=== PATIENT | male | born 1995 | race Two or more races ===

== ENCOUNTER 2024-03-28 21:42 | Emergency (ER) | payer BC ==
[2024-03-28 22:02] LABS: APPEARANCE,URINE CLEAR; BILIRUBIN,URINE NEGATIVE (NEGATIVE); COLOR,URINE YELLOW; GLUCOSE,URINE NEGATIVE (NEGATIVE); KETONES,URINE NEGATIVE (NEGATIVE); LEUKOCYTE ESTERASE,URINE NEGATIVE (NEGATIVE); NITRITE,URINE NEGATIVE (NEGATIVE); OCCULT BLOOD,URINE TRACE-INTACT (NEGATIVE); PROTEIN,URINE 30 mg/dL (NEGATIVE); UROBILINOGEN,URINE 0.2 EU/dL (<2.0)
[2024-03-28 22:11] LABS: WBC,URINE 0-2 (0-5/HPF)
[2024-03-28 22:12] LABS: BACTERIA,URINE RARE (NEGATIVE); EPITHELIAL CELLS,URINE OCCASIONAL (NONE-FEW); RBC,URINE 0-2 (0-2/HPF)
[2024-03-28] MEDS: Ondansetron 4 MG/2 ML SDV IVPUSH ONE (22:19)
[2024-03-28] MEDS: HYDROmorphone 0.5 MG/0.5 ML Syringe IVPUSH ONE (22:19)
[2024-03-28] MEDS: Sodium Chloride 0.9% 10 ML Syringe FLUSH PRN (22:19)
[2024-03-28] MEDS: Acetaminophen 500 MG Tab PO ONE (22:19)
[2024-03-28 22:27] LABS: BASOPHILS ABSOLUTE AUTO 0.03 K/uL (0.00-0.20); BASOPHILS PERCENT AUTO 0.3 % (0.0-1.0); EOSINOPHILS PERCENT AUTO 1.8 % (0.0-6.0); HEMATOCRIT 43.6 % (42.0-52.0); HEMOGLOBIN 15.2 g/dL (14.0-18.0); IMMATURE GRAN ABSOLUTE AUTO 0.04 K/uL (0.00-0.05); IMMATURE GRAN PERCENT AUTO 0.4 % (0.0-0.4); LYMPHOCYTES ABSOLUTE AUTO 1.96 K/uL (1.00-4.80); MEAN CORPUSCULAR HEMOGLOBIN 28.1 pg (28.0-32.0); MEAN CORPUSCULAR HGB CONC 34.9 g/dL (32.0-36.0); MEAN CORPUSCULAR VOLUME 80.6 fL (83.0-99.0); MEAN PLATELET VOLUME 9.2 fL (9.4-12.4); MONOCYTES ABSOLUTE AUTO 0.57 K/uL (0.00-0.80); MONOCYTES PERCENT AUTO 5.2 % (0.0-8.0); NEUTROPHILS ABSOLUTE AUTO 8.11 K/uL (1.80-7.70); NEUTROPHILS PERCENT AUTO 74.3 % (41.0-71.0); PLATELET COUNT,PLT 227 K/uL (150-400); RED BLOOD CELL COUNT 5.41 M/uL (4.52-5.90); WHITE BLOOD CELL COUNT,WBC 10.91 K/uL (3.9-11.3)
[2024-03-28 22:47] LABS: A/G RATIO 1.1 (0.9-1.6); BILIRUBIN TOTAL 0.6 mg/dL (0.2-1.0); CALCIUM 8.7 mg/dL (8.5-10.1); CARBON DIOXIDE,CO2 31.5 mmol/L (21.0-32.0); CREATININE 1.1 mg/dL (0.8-1.3); POTASSIUM,K 3.5 mmol/L (3.5-5.1); PROTEIN TOTAL,TP 7.8 g/dL (6.4-8.2)
[2024-03-28] MEDS: Ketorolac 30 MG/ML SDV IVPUSH ONE (23:05)
[2024-03-28] MEDS: droPERidol 5 MG/2 ML SDV IVPUSH ONE (23:38)
[2024-03-28] MEDS: Iopamidol 755 Mg/ML 100 ML Bottle IVPUSH ONE (23:50)
[2024-03-29] MEDS: Polyethylene Glycol 3350 Powder 17 GM Packet PO ONE (00:34)
[2024-03-29] MEDS: Dicyclomine 10 MG Cap PO ONE (00:34)
== END 2024-03-29 01:18 | disposition home or self-care (01) ==
LOC: MW.ED 21:42
DX: K80.20 Calculus of gallbladder without cholecystitis without obstruction (principal); K59.00 Constipation, unspecified; I10 Essential (primary) hypertension; Z79.899 Other long term (current) drug therapy
CPT/HCPCS: 36415; 74176; 74177; 80053; 81001; 83605; 85025; 96374; 96375; 99284; A9270; J1171; J1790; J1885; J2405; J3490; Q9967

== ENCOUNTER 2024-04-01 18:35 | Inpatient (IN) | payer BC ==
[2024-04-01] MEDS: Morphine 4 MG/ML Syringe IVPUSH ONE ×2 (19:49→21:37)
[2024-04-01] MEDS: Ondansetron 4 MG/2 ML SDV IVPUSH ONE (19:49)
[2024-04-01 19:58] LABS: BASOPHILS ABSOLUTE AUTO 0.03 K/uL (0.00-0.20); BASOPHILS PERCENT AUTO 0.2 % (0.0-1.0); EOSINOPHILS ABSOLUTE AUTO 0.07 K/uL (0.00-0.45); EOSINOPHILS PERCENT AUTO 0.5 % (0.0-6.0); HEMATOCRIT 44.5 % (42.0-52.0); HEMOGLOBIN 15.4 g/dL (14.0-18.0); IMMATURE GRAN ABSOLUTE AUTO 0.03 K/uL (0.00-0.05); IMMATURE GRAN PERCENT AUTO 0.2 % (0.0-0.4); LYMPHOCYTES ABSOLUTE AUTO 1.62 K/uL (1.00-4.80); LYMPHOCYTES PERCENT AUTO 12.3 % (24.0-44.0); MEAN CORPUSCULAR HEMOGLOBIN 27.7 pg (28.0-32.0); MEAN CORPUSCULAR HGB CONC 34.6 g/dL (32.0-36.0); MEAN CORPUSCULAR VOLUME 80.2 fL (83.0-99.0); MEAN PLATELET VOLUME 9.4 fL (9.4-12.4); MONOCYTES ABSOLUTE AUTO 0.52 K/uL (0.00-0.80); MONOCYTES PERCENT AUTO 3.9 % (0.0-8.0); NEUTROPHILS ABSOLUTE AUTO 10.92 K/uL (1.80-7.70); NEUTROPHILS PERCENT AUTO 82.9 % (41.0-71.0); PLATELET COUNT,PLT 258 K/uL (150-400); RED BLOOD CELL COUNT 5.55 M/uL (4.52-5.90); WHITE BLOOD CELL COUNT,WBC 13.19 K/uL (3.9-11.3)
[2024-04-01 19:59] LABS: APPEARANCE,URINE CLEAR; BILIRUBIN,URINE NEGATIVE (NEGATIVE); COLOR,URINE YELLOW; GLUCOSE,URINE NEGATIVE (NEGATIVE); KETONES,URINE TRACE mg/dL (NEGATIVE); LEUKOCYTE ESTERASE,URINE NEGATIVE (NEGATIVE); NITRITE,URINE NEGATIVE (NEGATIVE); OCCULT BLOOD,URINE NEGATIVE (NEGATIVE); PROTEIN,URINE 30 mg/dL (NEGATIVE); UROBILINOGEN,URINE 0.2 EU/dL (<2.0)
[2024-04-01 20:05] LABS: BACTERIA,URINE FEW (NEGATIVE); EPITHELIAL CELLS,URINE RARE (NONE-FEW); RBC,URINE 0-1 (0-2/HPF); WBC,URINE 0-1 (0-5/HPF)
[2024-04-01 20:20] LABS: A/G RATIO 1.1 (0.9-1.6); ALBUMIN 4.3 g/dL (3.4-5.0); BILIRUBIN TOTAL 0.8 mg/dL (0.2-1.0); CALCIUM 9.8 mg/dL (8.5-10.1); CARBON DIOXIDE,CO2 28.8 mmol/L (21.0-32.0); CREATININE 0.9 mg/dL (0.8-1.3); EST CRCL DRUG DOSING (CG) 116.11 mL/min; POTASSIUM,K 4.1 mmol/L (3.5-5.1); PROTEIN TOTAL,TP 8.1 g/dL (6.4-8.2)
[2024-04-01] MEDS ORDERED: Naloxone 0.4 MG/ML SDV IVPUSH PRN (22:17)
[2024-04-01] MEDS ORDERED: diphenhydrAMINE 50 MG/ML SDV IVPUSH PRN (22:19)
[2024-04-01] MEDS: hydrALAZINE 25 MG Tab PO SCH (22:51)
[2024-04-01] MEDS: Scopalamine 1mg/3day Transdermal Patch TRDERM SCH (22:52)
[2024-04-02] MEDS: Lactated Ringers 1,000 ML IV SCH (00:15)
[2024-04-02] MEDS ORDERED: Ondansetron 4 MG/2 ML SDV IVPUSH PRN ×2 (01:30→11:26)
[2024-04-02] MEDS: HYDROmorphone 0.5 MG/0.5 ML Syringe IVPUSH PRN ×2 (03:47→22:00)
[2024-04-02] MEDS ORDERED: dexmedeTOMIDine HCl 200 MCG/2 ML SDV IV ONE (07:45)
[2024-04-02] MEDS ORDERED: Bupivacaine 0.5% 30 ML SDV ONE ×2 (09:52→13:00)
[2024-04-02] MEDS ORDERED: Propofol 200 MG/20 ML SDV ONE (10:39)
[2024-04-02] MEDS ORDERED: fentaNYL 100 MCG/2 ML SDV ONE ×2 (10:44→14:13)
[2024-04-02] MEDS ORDERED: Rocuronium Bromide 50 MG/5 ML Syringe ONE ×3 (10:45→12:57)
[2024-04-02] MEDS ORDERED: Bupivacaine 0.25% 30 ML SDV ONE (10:47)
[2024-04-02] MEDS ORDERED: Ropivacaine 0.5% 5 MG/ML 30 ML SDV ONE (10:47)
[2024-04-02] MEDS ORDERED: Morphine 2 MG/ML SYRINGE IVPUSH PRN (11:26)
[2024-04-02] MEDS ORDERED: fentaNYL 50 MCG/ML SDV IVPUSH PRN (11:26)
[2024-04-02] MEDS ORDERED: Phenylephrine HCl In 0.9% NaCl 1 MG/10 ML Syringe IVPUSH PRN (11:26)
[2024-04-02] MEDS ORDERED: Albuterol 0.083% 2.5 MG/3 ML Neb Soln NEB PRN (11:26)
[2024-04-02] MEDS ORDERED: Naloxone 0.4 MG/ML SDV IVPUSH PRN (11:26)
[2024-04-02] MEDS ORDERED: Metoclopramide 10 MG/2 ML SDV IVPUSH PRN (11:26)
[2024-04-02] MEDS ORDERED: ceFAZolin 2 GM Vial ONE (11:29)
[2024-04-02] MEDS ORDERED: ceFAZolin 1 GM Vial ONE ×2 (11:29→13:23)
[2024-04-02] MEDS ORDERED: Ketamine HCL/NACL, ISO-OSM 50 MG/5 ML Syringe ONE ×2 (11:30→12:06)
[2024-04-02] MEDS ORDERED: Ondansetron 4 MG/2 ML SDV ONE (11:32)
[2024-04-02] MEDS ORDERED: Dexamethasone 4 MG/ML 5 ML MDV ONE (11:32)
[2024-04-02] MEDS ORDERED: Esmolol 100 MG/10 ML SDV ONE ×2 (12:16→12:22)
[2024-04-02] MEDS ORDERED: Ketorolac 30 MG/ML SDV ONE (13:05)
[2024-04-02] MEDS ORDERED: Sugammadex Sodium 200 MG/2 ML VIAL IV ONE (13:05)
[2024-04-02] MEDS ORDERED: Tranexamic Acid 1,000 MG/10 ML Vial ONE (13:10)
[2024-04-02] MEDS ORDERED: Sodium Chloride 0.9% 10 ML Syringe FLUSH PRN (14:45)
[2024-04-02] MEDS ORDERED: Sodium Chloride 0.9% 20 ML SDV IV PRN (14:45)
[2024-04-02] MEDS ORDERED: HYDROmorphone 2 MG/ML Syringe IVPUSH PRN (14:45)
[2024-04-02] MEDS ORDERED: Sodium Chloride 0.9% 2.5 ML Syringe FLUSH PRN (14:45)
[2024-04-02 15:16] LABS: HEMATOCRIT 43.6 % (42.0-52.0); HEMOGLOBIN 14.8 g/dL (14.0-18.0); MEAN CORPUSCULAR HEMOGLOBIN 27.9 pg (28.0-32.0); MEAN CORPUSCULAR HGB CONC 33.9 g/dL (32.0-36.0); MEAN CORPUSCULAR VOLUME 82.1 fL (83.0-99.0); MEAN PLATELET VOLUME 9.6 fL (9.4-12.4); PLATELET COUNT,PLT 209 K/uL (150-400); RED BLOOD CELL COUNT 5.31 M/uL (4.52-5.90); WHITE BLOOD CELL COUNT,WBC 12.75 K/uL (3.9-11.3)
[2024-04-02] MEDS: HYDROmorphone 1 MG/ML Syringe IVPUSH PRN (15:21)
[2024-04-02 15:43] LABS: ALBUMIN 3.6 g/dL (3.4-5.0); BILIRUBIN TOTAL 1.1 mg/dL (0.2-1.0); CALCIUM 8.5 mg/dL (8.5-10.1); CARBON DIOXIDE,CO2 27.6 mmol/L (21.0-32.0); CREATININE 1.2 mg/dL (0.8-1.3); EST CRCL DRUG DOSING (CG) 87.08 mL/min; HEMOGLOBIN A1C 5.4 %; POTASSIUM,K 4.2 mmol/L (3.5-5.1); PROTEIN TOTAL,TP 7.2 g/dL (6.4-8.2)
[2024-04-02 15:57] LABS: MAGNESIUM 1.8 mg/dL (1.8-2.4)
[2024-04-02] MEDS: Piperacillin/Tazobactam 4.5 GM in Sodium Chloride 0.9% 100 ML IV ONE (16:15)
[2024-04-02] MEDS: Cyclobenzaprine 10 MG Tab PO SCH (16:49)
[2024-04-02] MEDS: Ketorolac 30 MG/ML SDV IVPUSH SCH (19:13)
[2024-04-03 06:12] LABS: HEMATOCRIT 39.4 % (42.0-52.0); HEMOGLOBIN 13.7 g/dL (14.0-18.0); MEAN CORPUSCULAR HEMOGLOBIN 28.4 pg (28.0-32.0); MEAN CORPUSCULAR HGB CONC 34.8 g/dL (32.0-36.0); MEAN CORPUSCULAR VOLUME 81.6 fL (83.0-99.0); MEAN PLATELET VOLUME 9.6 fL (9.4-12.4); PLATELET COUNT,PLT 242 K/uL (150-400); RED BLOOD CELL COUNT 4.83 M/uL (4.52-5.90); WHITE BLOOD CELL COUNT,WBC 14.41 K/uL (3.9-11.3)
[2024-04-03 06:37] LABS: A/G RATIO 0.9 (0.9-1.6); ALBUMIN 3.2 g/dL (3.4-5.0); BILIRUBIN TOTAL 0.9 mg/dL (0.2-1.0); CALCIUM 8.9 mg/dL (8.5-10.1); CARBON DIOXIDE,CO2 29.5 mmol/L (21.0-32.0); CREATININE 0.9 mg/dL (0.8-1.3); EST CRCL DRUG DOSING (CG) 116.11 mL/min; PROTEIN TOTAL,TP 6.7 g/dL (6.4-8.2)
[2024-04-03] MEDS: Enoxaparin 40 MG/0.4 ML Syringe SUBCUT SCH (08:44)
[2024-04-03] MEDS: Acetaminophen/oxyCODONE 325-5 MG Tab PO PRN (08:51)
[2024-04-03] MEDS: Multivitamin Tab PO SCH (12:35)
[2024-04-04] MEDS: Docusate Sodium 100 MG Cap PO PRN (08:40)
== END 2024-04-04 14:20 | disposition home or self-care (01) | DRG 263 ==
LOC: MW.ED 18:35 → OBSVTOIN 21:31 → MW.MS 21:31 → MW.ICU 04-02 15:20 → MW.MS 04-03 08:15
PROVIDERS: ADMIT Surgery; ATTEND Surgery
PROC: 0FJ44ZZ Inspection of Gallbladder, Percutaneous Endoscopic Approach (ICD-10-PCS; 2024-04-02)
PROC: 0FT40ZZ Resection of Gallbladder, Open Approach (ICD-10-PCS; principal; 2024-04-02 12:00)
DX: K80.00 Calculus of gallbladder with acute cholecystitis without obstruction (principal); Z68.43 Body mass index [BMI] 50.0-59.9, adult; I10 Essential (primary) hypertension; D72.829 Elevated white blood cell count, unspecified; E66.01 Morbid (severe) obesity due to excess calories; K76.0 Fatty (change of) liver, not elsewhere classified; G47.33 Obstructive sleep apnea (adult) (pediatric); Z79.899 Other long term (current) drug therapy
CPT/HCPCS: 00790; 36415; 64488; 76705; 76705-26; 80053; 81001; 83036; 83690; 83735; 84100; 85025; 85027; 87070; 87075; 87205; 96374; 96375; 96376; 99283; 99285-25; A9270-GY; J0131; J0665; J0690; J1100; J1171; J1650; J1885; J2270; J2405; J2704; J2795; J3010; J3490; J7120